=== PATIENT | male | born 1980 | race African-American/Black ===

== ENCOUNTER 2022-04-18 22:43 | Emergency (ER) | payer BC ==
[2022-04-18] MEDS ORDERED: Silver Sulfadiazine 50 GM TUBE ONE (23:16)
[2022-04-18] MEDS ORDERED: HYDROcodone/Acetaminophen 5/325 mg Tablet ONE (23:30)
[2022-04-18] MEDS ORDERED: Boostrix 0.5 ML (Tdap) VIAL ONE (23:31)
== END 2022-04-18 23:43 | disposition home or self-care (01) ==
LOC: EEVIPCON 22:43 → CSHERS 22:43
DX: T23.232A Burn of second degree of multiple left fingers (nail), not including thumb, initial encounter (principal); Z87.891 Personal history of nicotine dependence; I10 Essential (primary) hypertension; X08.8XXA Exposure to other specified smoke, fire and flames, initial encounter; Z79.899 Other long term (current) drug therapy
CPT/HCPCS: 90471; 90715

== ENCOUNTER 2022-06-12 10:05 | Emergency (ER) | payer BC ==
[2022-06-12] MEDS ORDERED: Apixaban 5 MG TAB ONE (11:12)
[2022-06-12] MEDS ORDERED: PROPOFOL 0 ML ONE (11:12)
[2022-06-12] MEDS ORDERED: PROPOFOL 20 ML ONE (11:18)
[2022-06-12 11:32] LABS: #Eosinphils 0.2 10x3/uL (0.0-0.5); #Monocytes 0.5 10x3/uL (0.0-1.1); #Neutrophils 4.1 10x3/uL (1.5-8.4); %Basophils 0.4 % (0.0-2.0); %Eosinophils 2.3 % (0.0-6.0); %Monocytes 7.5 % (0.0-10.0); %Neutrophils 60.7 % (40.0-75.0); Hemoglobin 15.5 g/dL (13.5-17.5); Mean Corpuscular HGB CONC 35.6 g/dL (32.0-36.0); Mean Corpuscular Hemoglobin 27.8 pg (27.0-33.0); Mean Corpuscular Volume 78.3 fl (81.2-95.1); Mean Platelet Volume 9.9 fl (7.4-10.4); Platelet Count 179 10x3/uL (150-450); RBC Distribution Width 15.3 % (11.5-14.5); Red Blood Cell (RBC) Count 5.57 10x6/uL (4.32-5.72); White Blood Cell (WBC) Count 6.8 10x3/uL (3.5-10.5)
[2022-06-12 11:43] LABS: ALT (SGPT) 22 U/L (8-55); AST (SGOT) 37 U/L (5-34); Albumin 4.4 g/dL (3.5-5.0); Alkaline Phosphatase 52 U/L (40-110); Anion Gap 18 mmol/L (10-20); BUN (Urea Nitrogen) 17 mg/dL (8.9-20.6); Bilirubin, Total 1.7 mg/dL (0.2-1.2); Calc. Creatinine Clearance 0 mL/min (70-130); Carbon Dioxide 21 mmol/L (22-29); Chloride 105 mmol/L (98-107); Estimated GFR 52; Glucose 92 mg/dL (70-105); Potassium 3.9 mmol/L (3.5-5.1); Protein, Total 7.4 g/dL (6.0-8.3); Sodium 140 mmol/L (136-145)
== END 2022-06-12 13:50 | disposition home or self-care (01) ==
LOC: CSHERS 10:05
DX: I48.91 Unspecified atrial fibrillation (principal); I10 Essential (primary) hypertension; Z87.891 Personal history of nicotine dependence
CPT/HCPCS: 71045; 80053; 83880; 84484; 85025; 92960; 93005; 94760; 99152; J2704